=== PATIENT | female | born 1995 | race Hispanic/Latino ===

== ENCOUNTER 2023-05-24 06:19 | Inpatient (IN) | payer MEDICAID, OTHER, SELFPAY ==
[2023-05-24] MEDS ORDERED: Ondansetron PF 4 MG/2 ML Vial IVP PRN ×2 (07:25→18:51)
[2023-05-24] MEDS ORDERED: Lidocaine 1% (PF) 30 ML VIAL SC PRN (07:25)
[2023-05-24] MEDS ORDERED: Promethazine HCl 25 MG/ML VIAL IM PRN ×2 (07:25→18:51)
[2023-05-24] MEDS ORDERED: hydrALAZINE 20 MG/ML VIAL SLOW IVP PRN ×3 (07:25→17:04)
[2023-05-24] MEDS ORDERED: Misoprostol 200 MCG TAB PR PRN (07:26)
[2023-05-24] MEDS ORDERED: Carboprost 250 MCG/ML AMP IM PRN (07:26)
[2023-05-24] MEDS ORDERED: Methylergonovine 0.2 MG/ML VIAL IM PRN (07:26)
[2023-05-24] MEDS ORDERED: HYDROcodone/Acetaminophen 5/325 mg Tablet PO PRN (07:26)
[2023-05-24] MEDS ORDERED: Ibuprofen 800 MG TAB PO PRN (07:26)
[2023-05-24] MEDS ORDERED: Oxytocin 30 units/NS 500 ML 500 ML IV SCH ×2 (07:30)
[2023-05-24 08:27] LABS: Hematocrit 35.3 % (34.9-44.5); Hemoglobin 12.3 g/dL (12.0-15.5); Mean Corpuscular HGB CONC 34.8 g/dL (32.0-36.0); Mean Corpuscular Hemoglobin 30.1 pg (27.0-33.0); Mean Corpuscular Volume 86.3 fl (81.6-98.3); Mean Platelet Volume 11.3 fl (7.4-10.4); Platelet Count 231 10x3/uL (150-450); RBC Distribution Width 12.7 % (11.5-14.5); Red Blood Cell (RBC) Count 4.09 10x6/uL (3.90-5.03); White Blood Cell (WBC) Count 12.9 10x3/uL (3.5-10.5)
[2023-05-24 08:49] LABS: Syphilis Antibody Nonreactive (Nonreactive); Syphilis Antibody Index 0.04 S/CO (<1.00 Non-Reactive)
[2023-05-24 08:50] LABS: HBSAg Index 0.19 S/CO (0-0.99); Hep B Surf Ag - L&D Non-Reactive S/CO (NonReactive)
[2023-05-24 08:58] VITALS: BMI 26.6
[2023-05-24] MEDS ORDERED: fentaNYL/Ropivacaine Epidural 100 ML ONE (12:17)
[2023-05-24] MEDS ORDERED: Bupivacaine PF 0.5% 30 ML VIAL ONE (13:00)
[2023-05-24] MEDS ORDERED: Lidocaine 2% MPF 10 ML AMP (For Epidural Use) ONE (13:00)
[2023-05-24] MEDS ORDERED: Bisacodyl 10 MG SUPP PR PRN ×2 (16:46→17:04)
[2023-05-24] MEDS ORDERED: Milk Of Magnesia 30 ML UDCUP PO PRN ×2 (16:46→17:04)
[2023-05-24] MEDS ORDERED: Lanolin Ointment 7 GM TUBE TOP PRN (17:04)
[2023-05-24] MEDS ORDERED: Acetaminophen/Codeine 30-300mg Tablet PO PRN (17:04)
[2023-05-24] MEDS ORDERED: Acetaminophen 325 MG TAB PO PRN (18:51)
[2023-05-24] MEDS ORDERED: ePHEDrine Sulfate 50 MG/10 ML VIAL SLOW IVP PRN (18:51)
[2023-05-24] MEDS ORDERED: diphenhydrAMINE 50 MG/ML VIAL IVP PRN (18:51)
[2023-05-24] MEDS ORDERED: Lactated Ringer's 500 ML IV PRN (18:51)
[2023-05-24] MEDS ORDERED: Naloxone HCl 0.4 mg/ml Vial IVP PRN ×2 (18:51)
[2023-05-24] MEDS ORDERED: Moisturizing Cream (Eucerin) 113 GM JAR TOP PRN (18:51)
[2023-05-24] MEDS ORDERED: Communication Order-Pharmacy FS SCH (19:00)
[2023-05-24] MEDS ORDERED: fentaNYL 2 mcg/Ropivacaine 0.2% Epidural 100 ML CADD EPIDURAL SCH (19:00)
[2023-05-24] MEDS ORDERED: Docusate 100 MG CAP PO SCH (21:00)
[2023-05-24] MEDS: Docusate 100 MG CAP PO SCH (21:18)
[2023-05-25] MEDS: Ferrous Sulfate 325 MG TAB PO SCH ×2 (07:06→17:01)
[2023-05-25] MEDS: Ibuprofen 800 MG TAB PO SCH ×3 (07:55→17:00)
[2023-05-25] MEDS: Docusate 100 MG CAP PO SCH (07:55)
[2023-05-25] MEDS ORDERED: Prenatal Vitamin 1 TAB PO SCH (09:00)
[2023-05-25 15:50] VITALS: BP 108/59; TEMP 98
== END 2023-05-25 18:30 | disposition home or self-care (01) | DRG 807 ==
LOC: CSHLD/OP 06:19 → CSHLD 08:01 → CSHPP 19:12
PROVIDERS: ADMIT Obstetrics & Gynecology; ATTEND Obstetrics & Gynecology
PROC: 10E0XZZ Delivery of Products of Conception, External Approach (ICD-10-PCS; principal; 2023-05-24)
PROC: 10907ZC Drainage of Amniotic Fluid, Therapeutic from Products of Conception, Via Natural or Artificial Opening (ICD-10-PCS; 2023-05-24)
PROC: 3E033VJ Introduction of Other Hormone into Peripheral Vein, Percutaneous Approach (ICD-10-PCS; 2023-05-24)
PROC: 3E033XZ Introduction of Vasopressor into Peripheral Vein, Percutaneous Approach (ICD-10-PCS; 2023-05-24)
DX: O69.81X0 Labor and delivery complicated by cord around neck, without compression, not applicable or unspecified (principal); Z37.0 Single live birth; Z3A.40 40 weeks gestation of pregnancy; O48.0 Post-term pregnancy
CPT/HCPCS: 51702; 85027; 86780; 86850; 86900; 86901; 87340; 99285; J0665; J2590